=== PATIENT | female | born 1990 | race African-American/Black ===

== ENCOUNTER 2017-01-05 18:53 | Day surgery (SDC) | payer OTHER ==
[2017-01-05 19:42] VITALS: BP 116/58; TEMP 98.6; BMI 34.4
[2017-01-05 21:35] LABS: Bilirubin Negative (Negative); Blood, Urine Negative (Negative); Glucose, Urine (Dipstick) Negative (Negative); Ketone, Urine Negative (Negative); Nitrite Negative (Negative); Protein, Urine (Dipstick) Negative (Neg-Trace)
[2017-01-05 21:37] LABS: Bacteria/HPF None Seen HPF (None Seen); Hyaline Casts/LPF 4-6 HYALINE CAST LPF (0-3 Hyaline); RBC/HPF 0-3 HPF (0-3); Squamous Epithelial 0-3 HPF (0-3)
[2017-01-05 21:43] LABS: Amnisure Test No Membranes Rupture (No Rupture)
[2017-01-05] MEDS ORDERED: Acetaminophen 500 MG TAB PO SCH (22:15)
[2017-01-05] MEDS ORDERED: Fluconazole 100 MG TAB PO SCH (22:42)
--- NOTE | 2017-01-06 09:08 | PRG ---
DATE OF SERVICE: 01/05/2017 CHIEF COMPLAINT: Vaginal discharge. HISTORY OF PRESENT ILLNESS: At the time of presentation, Ms. Santana is a 26-year-old G3, P2, 32 week s and 5 days, who sees Dr. Derrick Schumacher. She presents with complaints of vaginal discharge for the l ast 2 days associated with some lower abdominal discomfort when the baby move. She does report good movement. Denies any vaginal bleeding. She reports some urgency with voiding. She denies a [place] fever or chills. She denies any cardiovascular or respiratory complaints. She denies any GI com plaints. LIMITED REVIEW OF SYSTEMS: Per HPI. PAST MEDICAL HISTORY: Negative. PAST SURGICAL HISTORY: Negative. OBSTETRICAL HISTORY: Spontaneous vaginal delivery x2 at term. MEDICATION: Keflex daily for UTI prophylaxis. ALLERGIES: No known drug allergies. PHYSICAL EXAMINATION: VITAL SIGNS: Blood pressure 116/58, pulse 90, respiratory rate 18, and temperature 98.6. GENERAL: Nontoxic appearing female, in no acute distress. OBSTETRIC: heart tracing is reactive. Tocodynamometer is quiet. LUNGS: Respirations are unlabored. ABDOMEN: Gravid, nontender. No rebound, no guarding. No CVA tenderness. EXTREMITIES: Without cyanosis, clubbing, or edema. NEUROLOGIC: Alert and oriented x3, no focal deficits. LABS AND STUDIES: fibronectin is negative. AmniSure is negative. VP3 notable for Solange. Urinalysis notable for small leukocyte esterase, 7-10 white blood cells. Nitrite is negative. ASSESSMENT AND PLAN: 1. A 32-week 5-day intrauterine with category 1 tracing. 2. Vaginal discharge. The patient was prescribed Diflucan 150 mg p.o. in a single dose p.r.n. labo r and delivery. 3. Lower abdominal discomfort, it is likely musculoskeletal in nature. The patient was instructed to obtain a maternity support belt. DISPOSITION: She should keep her next scheduled appointment with Dr. Derrick Schumacher.
== END 2017-01-05 23:00 | disposition home or self-care (01) ==
LOC: L&D/OP 18:53
PROVIDERS: ATTEND Obstetrics & Gynecology Obstetrics
DX: O99.89 Other specified diseases and conditions complicating pregnancy, childbirth and the puerperium (principal); N89.8 Other specified noninflammatory disorders of vagina; O23.43 Unspecified infection of urinary tract in pregnancy, third trimester; R10.30 Lower abdominal pain, unspecified; Z3A.32 32 weeks gestation of pregnancy; Z79.2 Long term (current) use of antibiotics; Z87.891 Personal history of nicotine dependence
CPT/HCPCS: 81001; 82731; 84112; 87480; 87510; 87660

== ENCOUNTER 2017-01-28 20:01 | Emergency (ER) | payer OTHER ==
[2017-01-28 21:24] LABS: #Eosinphils 0.4 thou/uL (0.0-0.7); #Lymphocytes 1.5 thou/uL (1.20-3.40); #Monocytes 0.8 thou/uL (0.11-0.59); %Basophils 0.3 % (0.0-1.0); %Eosinophils 4.2 % (0.0-10.0); %Lymphocytes 16.9 % (21.0-51.0); %Monocytes 9.4 % (0.0-10.0); Hematocrit 33.5 % (36.0-47.0); Mean Platelet Volume 5.5 fL (7.4-10.4); Red Blood Cell (RBC) Count 3.69 mill/uL (4.20-5.40); White Blood Cell (WBC) Count 8.7 thou/uL (4.8-10.8)
[2017-01-28 21:34] LABS: Bilirubin Negative (Negative); Blood, Urine Negative (Negative); Glucose, Urine (Dipstick) Negative (Negative); Ketone, Urine Negative (Negative); Nitrite Negative (Negative); Protein, Urine (Dipstick) Negative (Neg-Trace); Urobilinogen 0.2 mg/dL (0.2-1.0)
[2017-01-28] MEDS ORDERED: Acetaminophen 500 MG TAB ONE (21:39)
--- NOTE | 2017-01-28 21:40 | RAD ---
CHEST ONE VIEW 01/28/17 HISTORY: Chest pain, dyspnea. FINDINGS: The cardiac silhouette and pulmonary vasculature are unremarkable. Mediastinum is midline. There is n o confluent air space consolidation or evidence of pneumothorax. IMPRESSION: No active cardiopulmonary abnormalities are demonstrated. POS: [facility]
[2017-01-28 21:44] LABS: ALT (SGPT) 23 U/L (8-55); AST (SGOT) 32 U/L (5-34); Alkaline Phosphatase 128 U/L (40-150); Anion Gap 13 mmol/L (10-20); BUN (Urea Nitrogen) 9 mg/dL (7.0-18.7); Bilirubin, Total 0.2 mg/dL (0.2-1.2); CK (CPK) 433 U/L (29-168); Calc. Creatinine Clearance 0 mL/min (70-130); Calcium 9.2 mg/dL (7.8-10.44); Carbon Dioxide 21 mmol/L (22-29); Chloride 107 mmol/L (98-107); Estimated GFR-MDRD Greater than 90; Globulin 3.1 g/dL (2.4-3.5); Protein, Total 6.2 g/dL (6.0-8.3)
[2017-01-28 21:48] LABS: Troponin I Less than 0.010 ng/mL (< 0.028)
== END 2017-01-28 23:18 | disposition home or self-care (01) ==
LOC: ERS 20:01
DX: O99.513 Diseases of the respiratory system complicating pregnancy, third trimester (principal); J20.9 Acute bronchitis, unspecified; O99.332 Smoking (tobacco) complicating pregnancy, second trimester; F17.210 Nicotine dependence, cigarettes, uncomplicated; O99.343 Other mental disorders complicating pregnancy, third trimester; F31.9 Bipolar disorder, unspecified; Z3A.00 Weeks of gestation of pregnancy not specified
CPT/HCPCS: 36415; 71010; 80053; 81003; 82553; 84484; 85025; 93005; 96360

== ENCOUNTER 2017-02-12 11:08 | Emergency (ER) | payer OTHER ==
[2017-02-12] MEDS ORDERED: Acetaminophen 500 MG TAB ONE (12:47)
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
== END 2017-02-12 13:03 | disposition left against medical advice (07) ==
LOC: ERS 11:08
DX: O9A.219 Injury, poisoning and certain other consequences of external causes complicating pregnancy, unspecified trimester (principal); S16.1XXA Strain of muscle, fascia and tendon at neck level, initial encounter; O99.340 Other mental disorders complicating pregnancy, unspecified trimester; F31.9 Bipolar disorder, unspecified; O99.330 Smoking (tobacco) complicating pregnancy, unspecified trimester; F17.210 Nicotine dependence, cigarettes, uncomplicated; V89.2XXA Person injured in unspecified motor-vehicle accident, traffic, initial encounter
CPT/HCPCS: 99406

== ENCOUNTER 2017-02-25 00:10 | Inpatient (IN) | payer OTHER ==
[2017-02-25 01:08] LABS: Amnisure Test RUPTURE DETECTED (No Rupture)
[2017-02-25 01:09] VITALS: BMI 37.5
[2017-02-25] MEDS ORDERED: Penicillin G Potassium 5 MILL.UNITS VIAL ONE (01:31)
[2017-02-25] MEDS ORDERED: Ondansetron HCl/PF 4 MG/2 ML Vial IVP PRN ×2 (01:31→08:10)
[2017-02-25] MEDS ORDERED: HYDROcodone/Acetaminophen 5/325 mg Tablet PO PRN ×2 (01:33)
[2017-02-25] MEDS ORDERED: Lidocaine 1% (PF) 30 ML VIAL SC PRN (01:33)
[2017-02-25] MEDS ORDERED: Ibuprofen 800 MG TAB PO PRN (01:33)
[2017-02-25] MEDS: Lactated Ringer's 1,000 ML IV SCH (01:36)
[2017-02-25] MEDS ORDERED: Lactated Ringer's 1,000 ML IV SCH (01:45)
[2017-02-25] MEDS ORDERED: Penicillin G Potassium 5 MILL.UNITS in Sodium Chloride 0.9% 100 ML IVPB SCH (02:00)
[2017-02-25 02:03] LABS: Hematocrit 34.4 % (36.0-47.0); Mean Platelet Volume 6.3 fL (7.4-10.4); Red Blood Cell (RBC) Count 3.85 mill/uL (4.20-5.40); White Blood Cell (WBC) Count 7.9 thou/uL (4.8-10.8)
[2017-02-25] MEDS: Penicillin G 2.5 MILL.units 2.5 MILL.UNITS in Premix Bag 1 BAG IVPB SCH (05:46)
[2017-02-25 07:11] LABS: Amphetamine Not Detected (NotDetected); Methadone Not Detected (NotDetected); Methamphetamine Not Detected (NotDetected)
[2017-02-25] MEDS ORDERED: Fentanyl 4 mcg/Marc 0.1% Cadd 100 ML ONE (07:38)
[2017-02-25] MEDS ORDERED: Acetaminophen 325 MG TAB PO PRN (08:10)
[2017-02-25] MEDS ORDERED: diphenhydrAMINE 50 MG/ML VIAL IVP PRN (08:10)
[2017-02-25] MEDS ORDERED: Eucerin (Mineral Oil/Petrolatum,White) 30 gm Jar TOP PRN (08:10)
[2017-02-25] MEDS ORDERED: Naloxone HCl 0.4 mg/ml Vial IVP PRN ×2 (08:10)
[2017-02-25] MEDS ORDERED: Promethazine HCl 25 MG/ML VIAL IM PRN (08:10)
[2017-02-25] MEDS ORDERED: Lactated Ringer's 500 ML IV PRN (08:10)
[2017-02-25] MEDS ORDERED: ePHEDrine/0.9% NaCl/PF SYRINGE 50 mg/10 ml SLOW IVP PRN (08:10)
[2017-02-25] MEDS ORDERED: Communication Order-Pharmacy FS SCH (08:15)
[2017-02-25] MEDS ORDERED: Fentanyl 4mcg/Marcaine 0.1% Cassette 100 ML EPIDURAL SCH (08:15)
[2017-02-25] MEDS: LR 500 ML/Oxytocin 10 units 500 ML IV SCH (08:57)
[2017-02-25] MEDS ORDERED: FLU VACC QS2017-18 36 mo. & older 0.5 ML SYRINGE IM ONE (09:00)
--- NOTE | 2017-02-25 10:51 | PDOC.EVN ---
Event Note - Event Note Event Note: Labor course reviewed. Epidural in place. Continue plan. Await delivery.
[2017-02-25] MEDS: LR / Pitocin 40 units/1000 ml 1,000 ML IV PRN ×2 (11:20→13:14)
--- NOTE | 2017-02-25 11:25 | PDOC.OPDEL ---
OB Operative/Delivery Note Delivery Dr/Surgeon: Jesus Assist: None Pre-Delivery Diagnosis: active labor, other (Multigravida) Procedure/Post Delivery Dx: spontaneous vaginal delivery Weeks gestation: 38 Anesthesia: epidural - Findings A Sex: female (Delivery at 1116) - 1 min: 9 - 5 min: 9 - Additional Findings/Plan Placenta delivered: spontaneous (Delivered by [facility] mechanism at 1118) Repaired Obstetrical Laceration: none Estimated blood loss: 200 Compilations/Other Findings: Complications: None EBL: 200ml No Nuchal cord. No lacs. No epis. Counts correct.
[2017-02-25] MEDS ORDERED: Varicella virus, LIVE 0.5 ML VIAL SC ONE (11:33)
[2017-02-25] MEDS ORDERED: Benzocaine/Menthol 20-0.5% 60 ML CAN TOP PRN (11:33)
[2017-02-25] MEDS ORDERED: Measles/Mumps/Rubella 10 MCG/0.5 ML VIAL SC ONE (11:33)
[2017-02-25] MEDS ORDERED: Preparation H Ointment 28 GM TUBE PR PRN (11:33)
[2017-02-25] MEDS ORDERED: Lanolin Ointment 7 GM TUBE TOP PRN (11:33)
[2017-02-25] MEDS ORDERED: diphenhydrAMINE 25 MG CAP PO PRN (11:33)
[2017-02-25] MEDS ORDERED: Adacel (T-DAP) 0.5 ML VIAL IM ONE (11:33)
[2017-02-25] MEDS ORDERED: LR / Pitocin 40 units/1000 ml 1,000 ML IV SCH (11:45)
[2017-02-25] MEDS: Ibuprofen 800 MG TAB PO SCH ×2 (13:59→21:54)
[2017-02-25] MEDS: Acetaminophen/Codeine 30-300mg Tablet PO PRN ×2 (15:49→20:57)
[2017-02-25] MEDS: Ferrous Sulfate 325 MG TAB PO SCH (20:59)
[2017-02-25] MEDS: Docusate (Surfak) 240 MG CAP PO SCH (21:55)
[2017-02-26] MEDS: Acetaminophen/Codeine 30-300mg Tablet PO PRN ×4 (02:08→21:42)
[2017-02-26] MEDS: Penicillin G 2.5 MILL.units 2.5 MILL.UNITS in Premix Bag 1 BAG IVPB SCH (03:42)
[2017-02-26] MEDS: Ibuprofen 800 MG TAB PO SCH ×3 (06:12→21:25)
--- NOTE | 2017-02-26 06:55 | PDOC.PP ---
Post Progress Note Post Day #: 1 Subjective: Doing well, states some constipation. PO intake tolerated: yes Flatus: yes Ambulation: yes Vital Signs (12 hours) Temp Pulse Resp BP 02/26/17 00:35 98.1 F 77 18 114/59 L 02/25/17 20:15 98.3 F 66 16 122/60 Weight Weight 240 lb - Physical Examination General: NAD Cardiovascular: no m/r/g, RRR Abdominal: + bowel sounds Extremities: negative homans (B) Neurological: no gross focal deficits Psychiatric: A&Ox3, normal affect Result Diagrams: 02/25/17 01:36 Additional Labs: Post Labs Hep Bs Antigen Non-Reactive S/CO (NonReactive) 02/25/17 01:36 (1) Vaginal delivery Code(s): O80 - ENCOUNTER FOR FULL-TERM UNCOMPLICATED DELIVERY Status: Acute - Assessment/Plan 1. Continue care 2. Dulcolax prn 3. Patient desires stay until tomorrow 02/27 4. Vitals reviewed. 5. HCT pending this am for check.
[2017-02-26] MEDS ORDERED: Bisacodyl 5 MG TAB PO PRN (07:03)
[2017-02-26] MEDS: Lactated Ringer's 1,000 ML IV SCH (07:16)
[2017-02-26 07:51] LABS: Hematocrit 33.4 % (36.0-47.0)
[2017-02-26] MEDS: Prenatal Vitamin 1 TAB PO SCH (09:37)
[2017-02-26] MEDS: LR 500 ML/Oxytocin 10 units 500 ML IV SCH (09:37)
[2017-02-26] MEDS: Docusate (Surfak) 240 MG CAP PO SCH ×2 (09:37→21:25)
[2017-02-26] MEDS: Ferrous Sulfate 325 MG TAB PO SCH (09:37)
[2017-02-26] MEDS ORDERED: Mag-Al 1200 mg/1200 mg/30 ML UDCUP PO PRN (22:14)
[2017-02-26] MEDS: Milk Of Magnesia 30 ML UDCUP PO PRN (23:23)
[2017-02-27] MEDS: Ferrous Sulfate 325 MG TAB PO SCH ×2 (00:53→09:15)
[2017-02-27] MEDS: Acetaminophen/Codeine 30-300mg Tablet PO PRN ×2 (04:43→10:09)
[2017-02-27] MEDS: Ibuprofen 800 MG TAB PO SCH (05:55)
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
[2017-02-27 08:13] VITALS: BP 102/55; TEMP 97.6
[2017-02-27] MEDS: LR 500 ML/Oxytocin 10 units 500 ML IV SCH (09:14)
[2017-02-27] MEDS: Prenatal Vitamin 1 TAB PO SCH (10:03)
[2017-02-27] MEDS: Docusate (Surfak) 240 MG CAP PO SCH (10:03)
[2017-02-27] MEDS: Milk Of Magnesia 30 ML UDCUP PO PRN (10:04)
[2017-02-27] MEDS ORDERED: Acetaminophen/Codeine 30-300mg Tablet PO PRN ×2 (11:33)
== END 2017-02-27 13:00 | disposition home or self-care (01) | DRG 775 ==
LOC: L&D/OP 00:10 → L&D 01:25 → 3SW 15:09
PROVIDERS: ADMIT Obstetrics & Gynecology; ATTEND Obstetrics & Gynecology
PROC: 10E0XZZ Delivery of Products of Conception, External Approach (ICD-10-PCS; principal; 2017-02-25)
DX: O42.02 Full-term premature rupture of membranes, onset of labor within 24 hours of rupture (principal); O99.334 Smoking (tobacco) complicating childbirth; Z3A.38 38 weeks gestation of pregnancy; Z37.0 Single live birth; Z23 Encounter for immunization
CPT/HCPCS: 36415; 80306; 84112; 85014; 85018; 85027; 86762; 86780; 87340; 87389; 90715; J0595; J2540; J7050; J7120

== ENCOUNTER 2017-10-18 12:42 | Emergency (ER) | payer OTHER ==
[2017-10-18 13:29] LABS: Pregnancy Test - Urine (BHCG) Negative (Negative); Specific Gravity 1.025 (1.002-1.036)
[2017-10-18 13:30] LABS: Pregu Control Background? CLEAR/WHITE (CLR/WHITE); Pregu Control Bar Appear? YES (CONTROL BAR)
[2017-10-18 14:16] LABS: Bilirubin Negative (Negative); Blood, Urine Negative (Negative); Clarity CLEAR (Clear); Glucose, Urine (Dipstick) Negative (Negative); Leukocyte Trace (Negative); Nitrite Negative (Negative); Protein, Urine (Dipstick) 30 mg/dL (Neg-Trace); Specific Gravity, Urine 1.024 (1.002-1.036); Urobilinogen 0.2 mg/dL (0.2-1.0); pH, Urine 5.5 (5.0-9.0)
[2017-10-18 14:18] LABS: Bacteria/HPF None Seen HPF (None Seen); Hyaline Casts/LPF 4-6 HYALINE CAST LPF (0-3 Hyaline); RBC/HPF 0-3 HPF (0-3)
[2017-10-18 14:30] LABS: Crystals/HPF None Seen HPF (Negative); Oval Fat Bodies/HPF None Seen HPF (None Seen); Renal Epithelial None Seen HPF (0-3); Transitional Epithelial NONE SEEN HPF (0-3); Trichomonas/HPF None Seen HPF (None Seen)
== END 2017-10-18 14:49 | disposition home or self-care (01) ==
LOC: ERS 12:42
DX: N30.00 Acute cystitis without hematuria (principal); F31.9 Bipolar disorder, unspecified; F17.210 Nicotine dependence, cigarettes, uncomplicated
CPT/HCPCS: 36415; 81003; 81015; 81025; 84702; 87086; 99283

== ENCOUNTER 2017-10-21 21:52 | Emergency (ER) | payer OTHER ==
[2017-10-21 23:14] LABS: Bilirubin Negative (Negative); Blood, Urine Negative (Negative); Clarity CLOUDY (Clear); Glucose, Urine (Dipstick) Negative (Negative); Leukocyte Negative (Negative); Nitrite Negative (Negative); Pregnancy Test - Urine (BHCG) Negative (Negative); Pregu Control Background? CLEAR/WHITE (CLR/WHITE); Pregu Control Bar Appear? YES (CONTROL BAR); Protein, Urine (Dipstick) 100 mg/dL (Neg-Trace); Specific Gravity, Urine 1.031 (1.002-1.036); Urobilinogen 0.2 mg/dL (0.2-1.0); pH, Urine 5.5 (5.0-9.0)
[2017-10-21 23:16] LABS: Bacteria/HPF None Seen HPF (None Seen); Pathc Cast-AUWi Flag 1.45 (0-2.49)
[2017-10-21 23:17] LABS: Specific Gravity 1.031 (1.002-1.036)
[2017-10-21 23:25] LABS: Hyaline Casts/LPF 0-3 HYALINE CAST LPF (0-3 Hyaline)
== END 2017-10-21 23:51 | disposition home or self-care (01) ==
LOC: ERS 21:52
DX: N39.0 Urinary tract infection, site not specified (principal); F31.9 Bipolar disorder, unspecified; F17.210 Nicotine dependence, cigarettes, uncomplicated
CPT/HCPCS: 81003; 81015; 81025; 87086; 99283

== ENCOUNTER 2017-10-26 17:21 | Emergency (ER) | payer OTHER, SELFPAY ==
--- NOTE | 2017-10-26 18:22 | RAD ---
TWO VIEW CHEST: 10/26/17 COMPARISON: Single view chest 01/28/17. CLINICAL HISTORY: Cough. FINDINGS: There is no evidence of consolidation, effusion, or pneumothorax. The cardiac silhouette is normal in size. Osseous structures are intact. IMPRESSION: No focal consolidation. POS: [facility]
[2017-10-26] MEDS ORDERED: Ibuprofen 200 MG TAB ONE (19:37)
== END 2017-10-26 19:45 | disposition home or self-care (01) ==
LOC: ERS 17:21
DX: H66.91 Otitis media, unspecified, right ear (principal); F31.9 Bipolar disorder, unspecified; F17.210 Nicotine dependence, cigarettes, uncomplicated
CPT/HCPCS: 71046; 93005

== ENCOUNTER 2018-02-17 07:38 | Emergency (ER) | payer SELFPAY ==
[2018-02-17 08:34] LABS: #Eosinphils 0.3 thou/uL (0.0-0.7); #Lymphocytes 1.5 thou/uL (1.20-3.40); #Monocytes 0.3 thou/uL (0.11-0.59); #Neutrophils 2.1 thou/uL (1.40-6.50); %Basophils 1.1 % (0.0-1.0); %Eosinophils 8.1 % (0.0-10.0); %Lymphocytes 34.4 % (21.0-51.0); %Monocytes 6.7 % (0.0-10.0); %Neutrophils 49.7 % (42.0-75.0); Hemoglobin 14.5 g/dL (12.0-16.0); Mean Corpuscular HGB CONC 32.6 g/dL (32.0-36.0); Mean Corpuscular Hemoglobin 29.5 pg (27.0-31.0); Mean Corpuscular Volume 90.6 fL (78.0-98.0); Mean Platelet Volume 7.1 fL (7.4-10.4); Platelet Count 270 thou/uL (130-400); RBC Distribution Width 12.2 % (11.5-14.5); Red Blood Cell (RBC) Count 4.91 mill/uL (4.20-5.40); White Blood Cell (WBC) Count 4.3 thou/uL (4.8-10.8)
[2018-02-17 08:41] LABS: BHCG - Serum Negative (NEGATIVE); Pregs Control Background? CLEAR/WHITE (CLR/WHITE); Pregs Control Bar Appear? YES (CONTROL BAR)
== END 2018-02-17 09:20 | disposition home or self-care (01) ==
LOC: ERS 07:38
DX: N93.9 Abnormal uterine and vaginal bleeding, unspecified (principal); F31.9 Bipolar disorder, unspecified; F17.210 Nicotine dependence, cigarettes, uncomplicated
CPT/HCPCS: 36415; 84702; 84703; 85025; 99284

== ENCOUNTER 2018-02-18 15:57 | Emergency (ER) | payer OTHER, SELFPAY | END 2018-02-18 16:42 | disposition home or self-care (01) | LOC: ERS 15:57 | DX: H66.91 Otitis media, unspecified, right ear (principal); F31.9 Bipolar disorder, unspecified; F17.210 Nicotine dependence, cigarettes, uncomplicated | CPT/HCPCS: 99283 ==

== ENCOUNTER 2018-08-31 13:10 | Emergency (ER) | payer OTHER ==
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
[2018-08-31] MEDS ORDERED: Acetaminophen 500 MG TAB ONE (14:23)
== END 2018-08-31 14:32 | disposition home or self-care (01) ==
LOC: ERS 13:10
DX: S16.1XXA Strain of muscle, fascia and tendon at neck level, initial encounter (principal); F31.9 Bipolar disorder, unspecified; F17.210 Nicotine dependence, cigarettes, uncomplicated; V43.52XA Car driver injured in collision with other type car in traffic accident, initial encounter
CPT/HCPCS: 72125

== ENCOUNTER 2018-11-10 10:05 | Outpatient (CLI) | payer OTHER ==
--- NOTE | 2018-11-10 11:00 | ULT ---
Exam: Transabdominal and endovaginal pelvic ultrasound HISTORY:Pelvic pain x2 months COMPARISON: None TECHNIQUE: Transabdominal and endovaginal imaging of the pelvis is performed. Ovaries are interrogate d with grayscale, color flow, Doppler imaging and spectral wave form analysis FINDINGS: Uterus: No myometrial masses. Uterus measurin.3 x 7.9 x 5.1 cm. Endometrium: Homogeneous echotexture. Endometrium diameter: 0.3 cm. Nonspecific calcification in the lower uterine segment. Free fluid: None Left ovary: Normal echotexture. Dominant follicle measuring 0.9 x 0.8 x 0.7 cm Left ovary measurements: 3.3 x 1.5 x 2.0 cm Right ovary: Normal echotexture. Dominant follicle measuring 1.1 x 1.3 x 1.2 cm Right ovary measurement: 3.0 x 2.1 x 2.3 cm Ovarian Doppler: There is vascular flow to the left and right ovary. IMPRESSION: Nonspecific calcification lower uterine segment. Bilateral ovarian follicles.
== END 2018-11-10 10:06 | disposition home or self-care (01) ==
LOC: BICULT 10:05
DX: R10.2 Pelvic and perineal pain (principal); N85.8 Other specified noninflammatory disorders of uterus
CPT/HCPCS: 76856

== ENCOUNTER 2019-03-13 18:38 | Emergency (ER) | payer OTHER, SELFPAY ==
[2019-03-13 19:20] LABS: #Eosinphils 0.2 thou/uL (0.0-0.7); #Lymphocytes 1.2 thou/uL (1.20-3.40); #Monocytes 0.2 thou/uL (0.11-0.59); #Neutrophils 2.3 thou/uL (1.40-6.50); %Eosinophils 4.3 % (0.0-10.0); %Lymphocytes 31.2 % (21.0-51.0); %Monocytes 5.4 % (0.0-10.0); %Neutrophils 58.1 % (42.0-75.0); Hemoglobin 14.4 g/dL (12.0-16.0); Mean Corpuscular HGB CONC 34.8 g/dL (32.0-36.0); Mean Corpuscular Volume 89.3 fL (78.0-98.0); Mean Platelet Volume 6.1 fL (7.4-10.4); Platelet Count 292 thou/uL (130-400); RBC Distribution Width 11.5 % (11.5-14.5); Red Blood Cell (RBC) Count 4.65 mill/uL (4.20-5.40); White Blood Cell (WBC) Count 3.9 thou/uL (4.8-10.8)
[2019-03-13 19:40] LABS: ALT (SGPT) 16 U/L (8-55); AST (SGOT) 17 U/L (5-34); Albumin 3.9 g/dL (3.5-5.0); Alkaline Phosphatase 71 U/L (40-110); Anion Gap 13 mmol/L (10-20); BUN (Urea Nitrogen) 12 mg/dL (7.0-18.7); Bilirubin, Total 0.6 mg/dL (0.2-1.2); Calc. Creatinine Clearance 0 mL/min (70-130); Calcium 8.9 mg/dL (7.8-10.44); Carbon Dioxide 23 mmol/L (22-29); Chloride 107 mmol/L (98-107); Estimated GFR-MDRD Greater than 90; Globulin 2.6 g/dL (2.4-3.5); Glucose 72 mg/dL (70-105); Lipase 5 U/L (8-78); Potassium 3.5 mmol/L (3.5-5.1); Protein, Total 6.5 g/dL (6.0-8.3); Sodium 139 mmol/L (136-145)
[2019-03-13] MEDS ORDERED: Metoclopramide HCl 10 MG/2 ML VIAL ONE (19:44)
[2019-03-13] MEDS ORDERED: Acetaminophen 500 MG TAB ONE (20:20)
--- NOTE | 2019-03-13 21:19 | ULT ---
Pelvic ultrasound: 03/13/2019 HISTORY: female with pelvic pain TECHNIQUE: Multiplanar grayscale sonographic imaging of the pelvis obtained with transabdominal and e ndovaginal imaging. Ovaries are assessed with color flow and spectral analysis FINDINGS: The uterus measures 9.2 x 6.2 x 6.9 cm. There is small volume free fluid in the pelvic cul- de-sac. There is an intrauterine gestational sac which contains a yolk sac. No pole is appreciated at this time. Bilateral ovaries demonstrate normal blood flow. Right ovary measures 4.5 x 2.4 x 3.2 cm and left ova ry measures 3.9 x 1.4 x 2.6 cm. There are 2 cysts within the right ovary measuring 2.3 x 2.2 x 2.5 cm and 2.0 x 0.8 x 1.7 cm respectively. Gestational sac diameter is 1.5 cm, correlating with a 6 week 2 day gestation. Estimated date of deli very is 11/04/2019. There is a probable subchorionic hemorrhage measuring 7 x 8 mm. IMPRESSION: Intrauterine gestational sac demonstrating a internal yolk sac but no pole at this time. Probable small subchorionic hemorrhage. Right ovarian cysts are noted. Correlation with quantitative beta-hCG in 48 hours suggested.
[2019-03-13 22:13] LABS: Bilirubin Negative (Negative); Blood, Urine Negative (Negative); Clarity Clear (Clear); Glucose, Urine (Dipstick) Normal (Negative); Leukocyte Negative Leu/uL (Negative); Nitrite Negative (Negative); Pregnancy Test - Urine (BHCG) POSITIVE (Negative); Pregu Control Background? CLEAR/WHITE (CLR/WHITE); Pregu Control Bar Appear? YES (CONTROL BAR); Protein, Urine (Dipstick) Negative (Neg-Trace); Specific Gravity 1.029 (1.002-1.036); Urobilinogen Normal mg/dL (Less than 2)
== END 2019-03-13 22:30 | disposition home or self-care (01) ==
LOC: ERS 18:38
DX: O99.89 Other specified diseases and conditions complicating pregnancy, childbirth and the puerperium (principal); R10.84 Generalized abdominal pain; O21.9 Vomiting of pregnancy, unspecified; O99.341 Other mental disorders complicating pregnancy, first trimester; F31.9 Bipolar disorder, unspecified; O99.331 Smoking (tobacco) complicating pregnancy, first trimester; F17.210 Nicotine dependence, cigarettes, uncomplicated; Z3A.01 Less than 8 weeks gestation of pregnancy
CPT/HCPCS: 76856; 80053; 81003; 81025; 83690; 84702; 85025; 96365; 96372; J0500; J2765

== ENCOUNTER 2020-07-10 20:20 | Emergency (ER) | payer OTHER ==
[2020-07-10] MEDS ORDERED: Acetaminophen 500 MG TAB ONE (21:13)
== END 2020-07-10 22:05 | disposition short-term general hospital (02) ==
LOC: ERS 20:20
DX: Z04.71 Encounter for examination and observation following alleged adult physical abuse (principal); O99.332 Smoking (tobacco) complicating pregnancy, second trimester; F17.210 Nicotine dependence, cigarettes, uncomplicated; Z3A.21 21 weeks gestation of pregnancy; Y04.8XXA Assault by other bodily force, initial encounter
CPT/HCPCS: 99284

== ENCOUNTER 2020-10-17 23:12 | Emergency (ER) | payer OTHER ==
[2020-10-18 11:32] LABS: SARS-CoV-2 PCR by NAA Not Detected (NotDetected)
== END 2020-10-18 00:31 | disposition home or self-care (01) ==
LOC: ERS 23:12
DX: R51.9 Headache, unspecified (principal); R68.83 Chills (without fever); Z20.822 Contact with and (suspected) exposure to COVID-19; F17.210 Nicotine dependence, cigarettes, uncomplicated
CPT/HCPCS: 99284; U0003; U0005

== ENCOUNTER 2021-08-20 16:46 | Emergency (ER) | payer OTHER ==
[2021-08-20] MEDS ORDERED: Ondansetron ODT 4 MG TAB ONE (17:58)
[2021-08-20 18:25] LABS: #Eosinphils 0.3 thou/uL (0.0-0.7); #Monocytes 0.4 thou/uL (0.11-0.59); #Neutrophils 2.3 thou/uL (1.40-6.50); %Basophils 0.7 % (0.0-1.0); %Eosinophils 5.2 % (0.0-10.0); %Lymphocytes 40.3 % (21.0-51.0); %Monocytes 8.2 % (0.0-10.0); %Neutrophils 45.6 % (42.0-75.0); Hemoglobin 13.1 g/dL (12.0-16.0); Mean Corpuscular HGB CONC 33.8 g/dL (32.0-36.0); Mean Corpuscular Hemoglobin 30.2 pg (27.0-31.0); Mean Corpuscular Volume 89.4 fL (78.0-98.0); Mean Platelet Volume 5.7 fL (7.4-10.4); Platelet Count 352 thou/uL (130-400); RBC Distribution Width 12.8 % (11.5-14.5); Red Blood Cell (RBC) Count 4.33 mill/uL (4.20-5.40)
[2021-08-20 18:28] LABS: Bacteria/HPF None Seen HPF (None Seen); Bilirubin Negative (Negative); Blood, Urine 1+ (Negative); Clarity Clear (Clear); Glucose, Urine (Dipstick) Normal (Negative); Ketone, Urine Negative (Negative); Leukocyte Negative Leu/uL (Negative); Nitrite Negative (Negative); Protein, Urine (Dipstick) Negative (Neg-Trace); RBC/HPF None Seen HPF (0-3); Specific Gravity, Urine 1.023 (1.002-1.036); Squamous Epithelial 0-3 HPF (0-3); Urobilinogen Normal mg/dL (Less than 2); WBC/HPF 0-3 HPF (0-3); pH, Urine 6.5 (5.0-9.0)
[2021-08-20 18:48] LABS: BHCG - Serum Negative (NEGATIVE); Pregs Control Background? CLEAR/WHITE (CLR/WHITE); Pregs Control Bar Appear? YES (CONTROL BAR)
[2021-08-20 18:49] LABS: ALT (SGPT) 14 U/L (8-55); AST (SGOT) 16 U/L (5-34); Albumin 3.7 g/dL (3.5-5.0); Alkaline Phosphatase 86 U/L (40-110); Anion Gap 9 mmol/L (10-20); BUN (Urea Nitrogen) 14 mg/dL (7.0-18.7); Bilirubin, Total 0.2 mg/dL (0.2-1.2); Calc. Creatinine Clearance 0 mL/min (70-130); Carbon Dioxide 24 mmol/L (22-29); Chloride 107 mmol/L (98-107); Globulin 2.6 g/dL (2.4-3.5); Glucose 85 mg/dL (70-105); Lipase 8 U/L (8-78); Potassium 4.2 mmol/L (3.5-5.1); Protein, Total 6.3 g/dL (6.0-8.3); Sodium 136 mmol/L (136-145)
== END 2021-08-20 19:08 | disposition home or self-care (01) ==
LOC: ERS 16:46
DX: O21.9 Vomiting of pregnancy, unspecified (principal); F17.210 Nicotine dependence, cigarettes, uncomplicated
CPT/HCPCS: 36415; 80053; 81003; 81015; 83690; 84703; 85025; 99284; Q0162

== ENCOUNTER 2021-09-03 00:02 | Emergency (ER) | payer OTHER ==
[2021-09-03 00:23] LABS: Bilirubin Negative (Negative); Blood, Urine 2+ (Negative); Clarity Turbid (Clear); Glucose, Urine (Dipstick) Normal (Negative); Ketone, Urine Trace mg/dL (Negative); Leukocyte 500 Leu/uL (Negative); Nitrite Negative (Negative); Protein, Urine (Dipstick) 30 mg/dL (Neg-Trace); RBC/HPF 21-50 HPF (0-3); Specific Gravity, Urine 1.034 (1.002-1.036); WBC/HPF Greater than 50 HPF (0-3); pH, Urine 5.5 (5.0-9.0)
[2021-09-03 00:25] LABS: Bacteria/HPF 1+ HPF (None Seen); Pregnancy Test - Urine (BHCG) Negative (Negative)
[2021-09-03 00:26] LABS: Pregu Control Background? CLEAR/WHITE (CLR/WHITE); Pregu Control Bar Appear? YES (CONTROL BAR); Specific Gravity 1.034 (1.002-1.036)
[2021-09-03] MEDS ORDERED: cefTRIAXone\\ROCEPHIN 1 GM VIAL ONE (01:05)
[2021-09-03] MEDS ORDERED: Lidocaine 1% MPF 2 ML VIAL ONE (01:05)
[2021-09-03 01:14] LABS: #Basophils 0.1 thou/uL (0.0-0.2); #Eosinphils 0.1 thou/uL (0.0-0.7); #Lymphocytes 2.4 thou/uL (1.20-3.40); #Monocytes 0.5 thou/uL (0.11-0.59); #Neutrophils 3.5 thou/uL (1.40-6.50); %Basophils 0.9 % (0.0-1.0); %Eosinophils 2.1 % (0.0-10.0); %Lymphocytes 36.1 % (21.0-51.0); %Monocytes 6.9 % (0.0-10.0); %Neutrophils 54.1 % (42.0-75.0); Hemoglobin 13.5 g/dL (12.0-16.0); Mean Corpuscular HGB CONC 33.7 g/dL (32.0-36.0); Mean Corpuscular Hemoglobin 30.9 pg (27.0-31.0); Mean Corpuscular Volume 91.7 fL (78.0-98.0); Mean Platelet Volume 6.1 fL (7.4-10.4); Platelet Count 330 thou/uL (130-400); RBC Distribution Width 12.8 % (11.5-14.5); Red Blood Cell (RBC) Count 4.37 mill/uL (4.20-5.40); White Blood Cell (WBC) Count 6.5 thou/uL (4.8-10.8)
[2021-09-03 01:25] LABS: ALT (SGPT) 19 U/L (8-55); AST (SGOT) 19 U/L (5-34); Albumin 3.9 g/dL (3.5-5.0); Alkaline Phosphatase 88 U/L (40-110); Anion Gap 12 mmol/L (10-20); BUN (Urea Nitrogen) 17 mg/dL (7.0-18.7); Bilirubin, Total 0.3 mg/dL (0.2-1.2); Calc. Creatinine Clearance 0 mL/min (70-130); Carbon Dioxide 23 mmol/L (22-29); Chloride 108 mmol/L (98-107); Globulin 2.6 g/dL (2.4-3.5); Glucose 102 mg/dL (70-105); Potassium 3.6 mmol/L (3.5-5.1); Protein, Total 6.5 g/dL (6.0-8.3); Sodium 139 mmol/L (136-145)
== END 2021-09-03 01:30 | disposition home or self-care (01) ==
LOC: ERS 00:02
DX: N30.00 Acute cystitis without hematuria (principal); F17.210 Nicotine dependence, cigarettes, uncomplicated
CPT/HCPCS: 36415; 80053; 81003; 81015; 81025; 85025; 87086; 87186; 96372; 99283; J0696

== ENCOUNTER 2021-09-05 11:37 | Emergency (ER) | payer OTHER ==
[2021-09-05 14:24] LABS: Bilirubin Negative (Negative); Blood, Urine Negative (Negative); Clarity Clear (Clear); Glucose, Urine (Dipstick) Normal (Negative); Ketone, Urine Trace mg/dL (Negative); Leukocyte Negative Leu/uL (Negative); Nitrite Negative (Negative); Protein, Urine (Dipstick) 20 mg/dL (Neg-Trace); Urobilinogen Normal mg/dL (Less than 2); pH, Urine 5.5 (5.0-9.0)
== END 2021-09-05 15:03 | disposition home or self-care (01) ==
LOC: ERS 11:37
DX: U07.1 COVID-19 (principal); F17.210 Nicotine dependence, cigarettes, uncomplicated; Z79.899 Other long term (current) drug therapy
CPT/HCPCS: 81003; 87804; 99283; U0003; U0005

== ENCOUNTER 2022-02-03 17:50 | Emergency (ER) | payer OTHER ==
[2022-02-03 18:31] LABS: #Eosinphils 0.3 thou/uL (0.0-0.7); #Lymphocytes 2.1 thou/uL (1.20-3.40); #Monocytes 0.3 thou/uL (0.11-0.59); #Neutrophils 2.8 thou/uL (1.40-6.50); %Basophils 0.2 % (0.0-1.0); %Eosinophils 5.6 % (0.0-10.0); %Lymphocytes 37.9 % (21.0-51.0); %Monocytes 5.9 % (0.0-10.0); %Neutrophils 50.4 % (42.0-75.0); Hemoglobin 14.1 g/dL (12.0-16.0); Mean Corpuscular HGB CONC 33.6 g/dL (32.0-36.0); Mean Corpuscular Hemoglobin 31.3 pg (27.0-31.0); Mean Corpuscular Volume 93.2 fl (78.0-98.0); Mean Platelet Volume 6.9 fL (7.4-10.4); Platelet Count 276 10x3/uL (130-400); RBC Distribution Width 12.3 % (11.5-14.5); White Blood Cell (WBC) Count 5.6 10x3/uL (4.8-10.8)
[2022-02-03 18:40] LABS: BHCG - Serum Negative (NEGATIVE); Pregs Control Background? CLEAR/WHITE (CLR/WHITE); Pregs Control Bar Appear? YES (CONTROL BAR)
[2022-02-03 18:56] LABS: Anion Gap 12 mmol/L (10-20); BUN (Urea Nitrogen) 12 mg/dL (7.0-18.7); Calc. Creatinine Clearance 0 mL/min (70-130); Carbon Dioxide 24 mmol/L (22-29); Chloride 107 mmol/L (98-107); Estimated GFR 107; Glucose 85 mg/dL (70-105); Potassium 3.7 mmol/L (3.5-5.1); Sodium 139 mmol/L (136-145)
== END 2022-02-03 18:41 | disposition left against medical advice (07) ==
LOC: ERS 17:50
DX: N93.9 Abnormal uterine and vaginal bleeding, unspecified (principal); F17.210 Nicotine dependence, cigarettes, uncomplicated
CPT/HCPCS: 36415; 80048; 84703; 85025; 99283